=== PATIENT | female | born 1980 | race Hispanic/Latino ===

== ENCOUNTER 2018-02-13 05:06 | Emergency (ER) | payer SELFPAY | END 2018-02-13 05:48 | disposition home or self-care (01) | LOC: MADERS 05:06 | DX: G47.00 Insomnia, unspecified (principal); F41.9 Anxiety disorder, unspecified; F32.9 Major depressive disorder, single episode, unspecified | CPT/HCPCS: 99283 ==

== ENCOUNTER 2018-09-17 14:10 | Emergency (ER) | payer SELFPAY ==
[2018-09-17] MEDS ORDERED: Ibuprofen 800 MG TAB ONE (14:25)
[2018-09-17 14:41] LABS: Bilirubin Negative (Negative); Blood, Urine Large (Negative); Glucose, Urine (Dipstick) Negative (Negative); Leukocyte Negative (Negative); Nitrite Negative (Negative); Protein, Urine (Dipstick) Negative (Neg-Trace); Urobilinogen 0.2 mg/dL (0.2-1.0); pH, Urine 5.5 (5.0-9.0)
[2018-09-17 14:42] LABS: Clarity Hazy (Clear); Pregnancy Test - Urine (BHCG) POSITIVE (Negative); Pregu Control Background? CLEAR/WHITE (CLR/WHITE); Pregu Control Bar Appear? YES (CONTROL BAR)
[2018-09-17 14:45] LABS: Bacteria/HPF 1+ HPF (None Seen); Squamous Epithelial 0-3 HPF (0-3); WBC/HPF 0-3 HPF (0-3)
== END 2018-09-17 14:52 | disposition home or self-care (01) ==
LOC: MADERS 14:10
DX: O09.511 Supervision of elderly primigravida, first trimester (principal); O20.0 Threatened abortion; Z3A.08 8 weeks gestation of pregnancy
CPT/HCPCS: 81003; 81015; 81025; 99284

== ENCOUNTER 2018-11-07 16:04 | Emergency (ER) | payer SELFPAY ==
[2018-11-07 17:17] LABS: #Eosinphils 0.1 thou/uL (0.0-0.7); #Lymphocytes 1.4 thou/uL (1.20-3.40); #Monocytes 0.6 thou/uL (0.11-0.59); #Neutrophils 3.9 thou/uL (1.40-6.50); %Basophils 0.6 % (0.0-1.0); %Eosinophils 1.1 % (0.0-10.0); %Lymphocytes 22.9 % (21.0-51.0); %Monocytes 9.7 % (0.0-10.0); %Neutrophils 65.7 % (42.0-75.0); Hemoglobin 11.8 g/dL (12.0-16.0); Mean Corpuscular HGB CONC 32.1 g/dL (32.0-36.0); Mean Corpuscular Hemoglobin 30.5 pg (27.0-31.0); Mean Corpuscular Volume 94.9 fL (78.0-98.0); Mean Platelet Volume 9.6 fL (7.4-10.4); Platelet Count 252 thou/uL (130-400); RBC Distribution Width 11.7 % (11.5-14.5); Red Blood Cell (RBC) Count 3.86 mill/uL (4.20-5.40)
[2018-11-07 17:23] LABS: INR-International Normal Ratio 0.9; Prothrombin Time 12.5 SEC (12.0-14.7)
[2018-11-07 17:31] LABS: Anion Gap 12 mmol/L (10-20); BUN (Urea Nitrogen) 14 mg/dL (7.0-18.7); Calc. Creatinine Clearance 0 mL/min (70-130); Calcium 9.3 mg/dL (7.8-10.44); Carbon Dioxide 21 mmol/L (22-29); Chloride 108 mmol/L (98-107); Estimated GFR-MDRD Greater than 90; Glucose 93 mg/dL (70-105); Potassium 4.2 mmol/L (3.5-5.1); Sodium 137 mmol/L (136-145)
[2018-11-07] MEDS ORDERED: Lorazepam 1 MG TAB ONE (18:06)
--- NOTE | 2018-11-07 19:28 | CT ---
CT BRAIN 11/07/18 PROVIDED CLINICAL HISTORY: Left sided facial numbness and syncope. FINDINGS: The ventricular system appears normal in size and morphology. There is no evidence for intracranial h emorrhage or mass effect. Nonspecific tiny focus of calcification in the right frontoparietal white m atter. The extracranial soft tissues and osseous structures demonstrate no acute findings. IMPRESSION: No evidence for intracranial hemorrhage or mass effect. POS: MAT
== END 2018-11-07 18:34 | disposition home or self-care (01) ==
LOC: MADERS 16:04
DX: R42 Dizziness and giddiness (principal); F32.9 Major depressive disorder, single episode, unspecified
CPT/HCPCS: 36415; 70450; 80048; 84484; 85025; 85610; 93005

== ENCOUNTER 2020-05-02 07:09 | Outpatient (CLI) | payer OTHER ==
[2020-05-02 07:44] LABS: BHCG - Serum POSITIVE (NEGATIVE); Pregs Control Background? CLEAR/WHITE (CLR/WHITE); Pregs Control Bar Appear? YES (CONTROL BAR)
== END 2020-05-02 07:10 | disposition home or self-care (01) ==
LOC: MADLAB 07:09
PROVIDERS: ATTEND Family Medicine
DX: N91.2 Amenorrhea, unspecified (principal)
CPT/HCPCS: 36415; 84703